=== PATIENT | male | born 1980 | race Caucasian/White ===

== ENCOUNTER → 2020-10-22 | Outpatient (CLI) | payer OTHER ==
--- NOTE | 2020-10-22 16:09 | REP ---
INDICATION: PAIN LT SHOULDER. COMPARISON: None. TECHNIQUE: Coronal oblique T1 and fat suppressed T2. Sagittal oblique fat suppressed T2. Axial [id number] and T2 FLASH. FINDINGS: There is minimal hypertrophic change seen in the acromioclavicular joint. The acromion process is a minimal type 2. Mild patchy and linear T2 hyper signal is seen in the supraspinatus tendon without evidence of supraspinatus musculotendinous retraction or muscular atrophy. Normal appearing low signal is seen throughout the subscapularis, infraspinatus, and teres minor tendons. The biceps tendon resides within the bicipital groove. There is linear signal change seen in the superior labrum which is nearly anterior to posterior. There is mild coracoacromial ligamentous thickening. There is no glenohumeral joint effusion or abnormal fluid in the subcoracoid recess. The marrow signal is within normal limits. IMPRESSION: 1. Linear signal changes seen in the labrum, as described above, suspicious for a labral tear possibly a SLAP tear. This could be confirmed with shoulder MRI arthrography. 2. Minimal supraspinatus tendinitis/tendinosis. 3. Coracoacromial ligamentous thickening without other evidence of impingement syndrome. This should be correlated clinically. 4. Other findings as described above. <Electronically signed by Mane Clancy > 10/22/20 [id number]
== END ==
LOC: M PLARAD 14:50
PROVIDERS: ATTEND Physician Assistant
DX: M77.8 Other enthesopathies, not elsewhere classified (principal); M25.812 Other specified joint disorders, left shoulder